=== PATIENT | male | born 1945 | race Caucasian/White ===

== ENCOUNTER → 2022-02-22 | Day surgery (SDC) | payer MEDICARE ==
[2022-02-17 13:35] LABS: BASOPHILS % 0.4 % (0.0-1.0); EOSINOPHILS # (AUTO) 0.1 (0.0-0.4); EOSINOPHILS % 1.8 % (0.0-6.0); HEMOGLOBIN 15.8 g/dL (14.0-18.0); LYMPHOCYTES # (AUTO) 1.5 (1.0-3.2); LYMPHOCYTES % 22.4 % (18.0-39.1); MEAN CORPUSCULAR HEMOGLOBIN 26.8 pg (28-32); MEAN CORPUSCULAR HGB CONC 29.8 g/dL (31-35); MONOCYTES # (AUTO) 0.8 (0.2-0.8); MONOCYTES % 11.1 % (4.4-11.3); NEUTROPHILS # (AUTO) 4.3 (2.1-6.9); NEUTROPHILS % 63.9 % (38.7-80.0); PLATELET COUNT 205 x10e3/uL (140-360); RED BLOOD COUNT 5.89 x10e6/uL (4.3-5.7); RED CELL DISTRIBUTION WIDTH 17.6 % (11.7-14.4)
[2022-02-17 13:54] LABS: ANION GAP 15.2 mmol/L (8-16); CALCIUM 9.4 mg/dL (8.4-10.2); CREATININE, SERUM 0.81 mg/dL (0.72-1.25); POTASSIUM 5.2 mmol/L (3.5-5.1)
[~2022-02-22] MED LIST: ACETAMINOPHEN-1 EAC4; ATROPINE SULFATE 1 MG/ML VIAL ONE; B&O 60MG R/S 60 MG SUPP PR ONE; BUPIVACAINE 0.25% 30ML SDV ONE; CRESTOR10 MG PO; DEXAMETHASONE SOD PHOS INJ 4 MG/ML SDV ONE; ELIQUIS5 MG PO; EPHEDRINE SULFATE INJ 50 MG/ML VIAL ONE; FENTANYL CITRATE/PF 100MCG/2 ML INJ ONE; FLUTICASONE PRO15 G1; FOLIC ACID0.4 MG PO; FUROSEMIDE40 MG PO; GENTAMICIN 80MG/NS 100 ML 200 ML IV ONE; IOPAMIDOL 610MG/1ML 300 MG/ML VIAL IV ONE; LIDOCAINE 1% W/EPINEPHRINE 20 ML VIAL ONE; LIDOCAINE HCL 2% LOCAL INJ 5 ML SDV VIAL INJ ONE; MELOXICAM7.5 MG PO; METHENAMINE HIPP1 GM; METOPROLOL SUCC50 MG PO; MULTI-VITAMIN1 EACH PO; NEOSTIGMINE 1 MG/ML 10ML VIAL ONE; NEURONTIN400 MG PO; ONDANSETRON HCL INJ 2MG/ML 2ML 2 MG/ML VIAL ONE; PHENYLEPHRINE HCL 1% 10 MG/ML VIAL ONE; PIPERACILLIN/TAZOBACTAM 3.375 GM VIAL ONE; POTASSIUM CHLO20 ME1 PO; POVIDONE IODINE 0.05% 0.05 % ML PO ONE; PROPOFOL IV EMULSION 10 MG/ML 20 ML VIAL ONE; SEVOFLURANE INHAL SOLN 250 ML PEN BTL ONE
[2022-02-22 11:05] VITALS: BP 133/88
== END | disposition home or self-care (01) ==
LOC: OR 07:57
PROVIDERS: ATTEND Urology
DX: N39.0 Urinary tract infection, site not specified (principal); N21.0 Calculus in bladder; N39.46 Mixed incontinence; N36.8 Other specified disorders of urethra; C61 Malignant neoplasm of prostate; N31.9 Neuromuscular dysfunction of bladder, unspecified; N32.3 Diverticulum of bladder; R80.9 Proteinuria, unspecified; R60.0 Localized edema; E66.9 Obesity, unspecified; I10 Essential (primary) hypertension; I25.10 Atherosclerotic heart disease of native coronary artery without angina pectoris; T14.8XXA Other injury of unspecified body region, initial encounter; J44.9 Chronic obstructive pulmonary disease, unspecified; I25.2 Old myocardial infarction; I48.91 Unspecified atrial fibrillation; X58.XXXA Exposure to other specified factors, initial encounter; Z88.1 Allergy status to other antibiotic agents; Z88.8 Allergy status to other drugs, medicaments and biological substances; Z01.812 Encounter for preprocedural laboratory examination; Z01.818 Encounter for other preprocedural examination; Z20.822 Contact with and (suspected) exposure to COVID-19; Z79.02 Long term (current) use of antithrombotics/antiplatelets; Z79.899 Other long term (current) drug therapy; Z68.37 Body mass index [BMI] 37.0-37.9, adult; Z87.891 Personal history of nicotine dependence
CPT/HCPCS: 0223U; 36415; 51040; 52005; 52317; 71046; 74420; 80048; 84152; 85025; C1758; J0461; J1100; J1580; J2001; J2370; J2405; J2543; J2704; J2710; J3010; Q9967

== ENCOUNTER 2022-05-02 19:47 | Emergency (ER) | payer MEDICARE, OTHER ==
[~2022-05-02] VITALS: Ht 180.3 cm; Wt 117.9 kg
[~2022-05-02 19:47] MED LIST changes: -ATROPINE SULFATE 1 MG/ML VIAL ONE; -B&O 60MG R/S 60 MG SUPP PR ONE; -BUPIVACAINE 0.25% 30ML SDV ONE; -DEXAMETHASONE SOD PHOS INJ 4 MG/ML SDV ONE; -EPHEDRINE SULFATE INJ 50 MG/ML VIAL ONE; -FENTANYL CITRATE/PF 100MCG/2 ML INJ ONE; -GENTAMICIN 80MG/NS 100 ML 200 ML IV ONE; -IOPAMIDOL 610MG/1ML 300 MG/ML VIAL IV ONE; -LIDOCAINE 1% W/EPINEPHRINE 20 ML VIAL ONE; -LIDOCAINE HCL 2% LOCAL INJ 5 ML SDV VIAL INJ ONE; -NEOSTIGMINE 1 MG/ML 10ML VIAL ONE; -ONDANSETRON HCL INJ 2MG/ML 2ML 2 MG/ML VIAL ONE; -PHENYLEPHRINE HCL 1% 10 MG/ML VIAL ONE; -PIPERACILLIN/TAZOBACTAM 3.375 GM VIAL ONE; -POVIDONE IODINE 0.05% 0.05 % ML PO ONE; -PROPOFOL IV EMULSION 10 MG/ML 20 ML VIAL ONE; -SEVOFLURANE INHAL SOLN 250 ML PEN BTL ONE
[2022-05-02] MEDS ORDERED: SODIUM CHLORIDE 0.9% 1000ML 1,000 ML IV STA (20:45)
[2022-05-02] MEDS ORDERED: ACETAMINOPHEN 325 MG TAB PO STA (20:45)
[2022-05-02 20:48] LABS: BASOPHILS % 0.3 % (0.0-1.0); EOSINOPHILS # (AUTO) 0.3 (0.0-0.4); EOSINOPHILS % 2.5 % (0.0-6.0); HEMATOCRIT 49.9 % (38.2-49.6); HEMOGLOBIN 15.5 g/dL (14.0-18.0); LYMPHOCYTES # (AUTO) 1.5 (1.0-3.2); LYMPHOCYTES % 14.6 % (18.0-39.1); MEAN CORPUSCULAR HEMOGLOBIN 27.7 pg (28-32); MEAN CORPUSCULAR HGB CONC 31.1 g/dL (31-35); MEAN CORPUSCULAR VOLUME 89.3 fL (81-99); MONOCYTES # (AUTO) 0.7 (0.2-0.8); MONOCYTES % 7.1 % (4.4-11.3); NEUTROPHILS # (AUTO) 7.8 (2.1-6.9); PLATELET COUNT 227 x10e3/uL (140-360); RED BLOOD COUNT 5.59 x10e6/uL (4.3-5.7); RED CELL DISTRIBUTION WIDTH 16.2 % (11.7-14.4)
[2022-05-02 20:56] LABS: AMPHETAMINES SCREEN,URINE NEGATIVE (NEGATIVE); BENZODIAZEPINES SCREEN,URINE NEGATIVE (NEGATIVE); PHENCYCLIDINE SCREEN,URINE NEGATIVE (NEGATIVE)
[2022-05-02 21:08] LABS: ALBUMIN 3.7 g/dL (3.5-5.0); ALBUMIN/GLOBULIN RATIO 0.9 (0.8-2.0); ANION GAP 16.1 mmol/L (8-16); CALCIUM 9.5 mg/dL (8.4-10.2); CREATININE, SERUM 0.83 mg/dL (0.72-1.25); POTASSIUM 4.1 mmol/L (3.5-5.1)
[2022-05-02 21:15] LABS: CREATINE KINASE MB 2.6 ng/mL (0-5.0)
[2022-05-02 21:47] LABS: CLARITY,URINE CLOUDY (CLEAR); COLOR,URINE AMBER (YELLOW); KETONES,URINE NEGATIVE (NEGATIVE); LEUKOCYTE ESTERASE ,URINE MODERATE (NEGATIVE); NITRITE,URINE POSITIVE (NEGATIVE); PROTEIN,URINE DIPSTICK 1+ (NEGATIVE); URINE UROBILINOGEN 0.2 mg/dL (0.2 - 1)
[2022-05-02 21:52] LABS: AMORPHOUS SEDIMENT,URINE MODERATE (FEW); BACTERIA,URINE MODERATE /HPF; EPITHELIAL CELLS,URINE FEW /LPF; RBC,URINE >50 /HPF (0-5)
[2022-05-02] MEDS ORDERED: IOPAMIDOL 370 MG/ML 100 ML INFUS..BTL INJ ONE (22:14)
[2022-05-02] MEDS ORDERED: CIPRO500 MG PO (23:57)
[2022-05-03 00:09] VITALS: BP 105/76
== END 2022-05-02 23:50 | disposition home or self-care (01) ==
LOC: ER 19:56
DX: R10.32 Left lower quadrant pain (principal); N39.0 Urinary tract infection, site not specified; Z88.8 Allergy status to other drugs, medicaments and biological substances; E66.01 Morbid (severe) obesity due to excess calories; Z93.6 Other artificial openings of urinary tract status; Z68.36 Body mass index [BMI] 36.0-36.9, adult; Z20.822 Contact with and (suspected) exposure to COVID-19
CPT/HCPCS: 0223U; 36415; 71045; 74177; 80053; 80307; 81001; 82550; 82553; 83605; 83690; 83880; 84484; 85025; 85379; 87040; 87086; 87186; 93005; J2543; J7030; Q9967

== ENCOUNTER 2022-05-18 16:00 | Inpatient (IN) | payer MEDICARE, OTHER ==
[~2022-05-18] VITALS: Ht 180.3 cm; Wt 113.4 kg
[~2022-05-18 16:00] MED LIST changes: +CIPRO500 MG PO
[2022-05-18] MEDS ORDERED: SODIUM CHLORIDE 0.9% 500ML 500 ML IV ONE (16:45)
[2022-05-18 16:47] LABS: BASOPHILS % 0.3 % (0.0-1.0); EOSINOPHILS # (AUTO) 0.2 (0.0-0.4); HEMATOCRIT 54.1 % (38.2-49.6); HEMOGLOBIN 16.8 g/dL (14.0-18.0); LYMPHOCYTES # (AUTO) 1.7 (1.0-3.2); LYMPHOCYTES % 22.1 % (18.0-39.1); MEAN CORPUSCULAR HEMOGLOBIN 27.5 pg (28-32); MEAN CORPUSCULAR HGB CONC 31.1 g/dL (31-35); MEAN CORPUSCULAR VOLUME 88.5 fL (81-99); MONOCYTES # (AUTO) 0.7 (0.2-0.8); MONOCYTES % 8.9 % (4.4-11.3); NEUTROPHILS # (AUTO) 5.1 (2.1-6.9); NEUTROPHILS % 66.2 % (38.7-80.0); PLATELET COUNT 257 x10e3/uL (140-360); RED BLOOD COUNT 6.11 x10e6/uL (4.3-5.7); RED CELL DISTRIBUTION WIDTH 17.4 % (11.7-14.4)
[2022-05-18 16:58] LABS: INR 1.11; PROTHROMBIN TIME 15.3 seconds (11.9-14.5)
[2022-05-18 16:59] LABS: PARTIAL THROMBOPLASTIN TIME 32.5 seconds (23.8-35.5)
[2022-05-18 17:06] LABS: ALBUMIN 3.7 g/dL (3.5-5.0); ALBUMIN/GLOBULIN RATIO 0.9 (0.8-2.0); ANION GAP 16.6 mmol/L (8-16); CALCIUM 10.2 mg/dL (8.4-10.2); CREATININE, SERUM 0.82 mg/dL (0.72-1.25); POTASSIUM 4.6 mmol/L (3.5-5.1)
[2022-05-18 18:12] LABS: CLARITY,URINE TURBID (CLEAR); COLOR,URINE YELLOW (YELLOW)
[2022-05-18 18:13] LABS: KETONES,URINE NEGATIVE (NEGATIVE); LEUKOCYTE ESTERASE ,URINE SMALL (NEGATIVE); NITRITE,URINE POSITIVE (NEGATIVE); PROTEIN,URINE DIPSTICK 2+ (NEGATIVE); URINE UROBILINOGEN 1 mg/dL (0.2 - 1)
[2022-05-18 18:19] LABS: WBC,URINE (MAN) 21-50 /HPF (0-5)
[2022-05-18 18:20] LABS: BACTERIA,URINE MODERATE /HPF; RBC,URINE 21-50 /HPF (0-5)
[2022-05-18 20:45] VITALS: BP 150/76
[2022-05-18 22:26] VITALS: BP 150/76
[2022-05-18] MEDS ORDERED: SODIUM CHLORIDE 0.9% 250ML 250 ML ONE (23:29)
[2022-05-19] VITALS (10 sets, daily range): BP systolic 141–159; BP diastolic 73–98
[2022-05-19] MEDS ORDERED: MELATONIN3 MG PO (00:15)
[2022-05-19] MEDS ORDERED: CYMBALTA30 MG (00:15)
[2022-05-19] MEDS ORDERED: OXYBUTYNIN CHLOR5 MG PO (00:15)
[2022-05-19] MEDS ORDERED: AMLODIPINE BESYL5 MG PO (00:15)
[2022-05-19] MEDS ORDERED: FLONASE ALLERG9.9 ML INH (00:15)
[2022-05-19] MEDS ORDERED: POLYETHYLENE GL17 GM PO (00:15)
[2022-05-19] MEDS ORDERED: ELIQUIS5 MG PO (09:36)
[2022-05-19] MEDS ORDERED: ACETAMINOPHEN/CODEINE 300MG - 30MG TAB PO PRN (12:30)
[2022-05-19] MEDS: GABAPENTIN 400 MG CAP PO SCH ×2 (13:48→19:55)
[2022-05-19] MEDS: APIXABAN 5 MG TABLET PO SCH (17:09)
[2022-05-19] MEDS: FUROSEMIDE 40 MG TAB PO SCH (17:09)
[2022-05-19] MEDS: AMLODIPINE BESYLATE 5 MG TAB PO SCH (17:09)
[2022-05-20 04:00] VITALS: BP 158/81
[2022-05-20 04:53] LABS: BASOPHILS % 0.3 % (0.0-1.0); EOSINOPHILS # (AUTO) 0.3 (0.0-0.4); EOSINOPHILS % 3.6 % (0.0-6.0); HEMATOCRIT 49.1 % (38.2-49.6); HEMOGLOBIN 16.2 g/dL (14.0-18.0); LYMPHOCYTES # (AUTO) 1.4 (1.0-3.2); LYMPHOCYTES % 19.7 % (18.0-39.1); MEAN CORPUSCULAR HEMOGLOBIN 27.8 pg (28-32); MEAN CORPUSCULAR VOLUME 84.4 fL (81-99); MONOCYTES # (AUTO) 0.8 (0.2-0.8); MONOCYTES % 10.7 % (4.4-11.3); NEUTROPHILS # (AUTO) 4.6 (2.1-6.9); NEUTROPHILS % 65.3 % (38.7-80.0); PLATELET COUNT 195 x10e3/uL (140-360); RED BLOOD COUNT 5.82 x10e6/uL (4.3-5.7); RED CELL DISTRIBUTION WIDTH 17.2 % (11.7-14.4)
[2022-05-20 05:25] LABS: ANION GAP 15.4 mmol/L (8-16); CALCIUM 9.7 mg/dL (8.4-10.2); CREATININE, SERUM 0.72 mg/dL (0.72-1.25); POTASSIUM 3.4 mmol/L (3.5-5.1)
[2022-05-20 07:48] VITALS: BP 128/84
[2022-05-20] MEDS: AMLODIPINE BESYLATE 5 MG TAB PO SCH (08:45)
[2022-05-20] MEDS: FUROSEMIDE 40 MG TAB PO SCH (08:45)
[2022-05-20] MEDS: GABAPENTIN 400 MG CAP PO SCH (08:46)
[2022-05-20] MEDS: APIXABAN 5 MG TABLET PO SCH (08:46)
[2022-05-20] MEDS ORDERED: SIMVASTATIN 40 MG TAB PO SCH (09:00)
[2022-05-20] MEDS ORDERED: NON-FORMULARY MEDICATION (Folic Acid* 1 MG) PO SCH (09:00)
[2022-05-20] MEDS ORDERED: FLUTICASONE PROPIONATE NASAL SPRAY NS SCH (09:00)
[2022-05-20] MEDS ORDERED: MULTIVITAMINS/MINERALS TAB PO SCH (09:00)
[2022-05-20] MEDS ORDERED: FOLIC ACID 1 MG TAB PO SCH (09:00)
[2022-05-20] MEDS ORDERED: CRESTOR 10MG PO SCH (09:00)
[2022-05-20] MEDS ORDERED: NON-FORMULARY MEDICATION (Fluticasone Propionate* (Flonase Allergy Relief*) 2 EACH) INH SCH (09:00)
[2022-05-20] MEDS ORDERED: DULOXETINE HCL 30 MG DELAYED RELEASE PO SCH (09:00)
[2022-05-20] MEDS ORDERED: METOPROLOL SUCCINATE 50 MG TAB XL PO SCH (09:00)
[2022-05-20] MEDS ORDERED: POLYETHYLENE GLYCOL 3350 17 GM PACK PO SCH (09:00)
[2022-05-20 11:18] VITALS: BP 145/79
[2022-05-20 11:42] VITALS: BP 145/79
[2022-05-20] MEDS ORDERED: Acetaminophen/Codeine 300-30MG PO (14:22)
[2022-05-20] MEDS ORDERED: ZOSYN 3.373.375 GM/1 IV (14:25)
[2022-05-20 14:55] VITALS: BP 118/76
== END 2022-05-20 15:28 | DRG 699 ==
LOC: ER 16:05 → ERHOLD 16:30 → MED/SURG2 21:03
PROVIDERS: ADMIT Internal Medicine; ATTEND Internal Medicine
DX: T83.510A Infection and inflammatory reaction due to cystostomy catheter, initial encounter (principal); D68.9 Coagulation defect, unspecified; I48.20 Chronic atrial fibrillation, unspecified; N39.0 Urinary tract infection, site not specified; Z16.12 Extended spectrum beta lactamase (ESBL) resistance; Z16.24 Resistance to multiple antibiotics; B96.20 Unspecified Escherichia coli [E. coli] as the cause of diseases classified elsewhere; I11.0 Hypertensive heart disease with heart failure; I50.9 Heart failure, unspecified; I25.2 Old myocardial infarction; E78.5 Hyperlipidemia, unspecified; Z85.46 Personal history of malignant neoplasm of prostate; Z88.8 Allergy status to other drugs, medicaments and biological substances; Z79.01 Long term (current) use of anticoagulants; G89.4 Chronic pain syndrome; E66.01 Morbid (severe) obesity due to excess calories; G62.9 Polyneuropathy, unspecified; E87.6 Hypokalemia; N28.1 Cyst of kidney, acquired; K42.9 Umbilical hernia without obstruction or gangrene; N20.0 Calculus of kidney; G47.30 Sleep apnea, unspecified; Z68.34 Body mass index [BMI] 34.0-34.9, adult; N31.9 Neuromuscular dysfunction of bladder, unspecified; N39.498 Other specified urinary incontinence; Z20.822 Contact with and (suspected) exposure to COVID-19
CPT/HCPCS: 0223U; 36415; 80048; 80053; 81001; 83735; 85025; 85610; 85730; 87040; 87086; 87186; 93005; 99284; J2543; J7040; J7050

== ENCOUNTER 2022-06-24 08:26 | Emergency (ER) | payer MEDICARE, OTHER ==
[~2022-06-24] VITALS: Ht 332.7 cm; Wt 113.4 kg
[~2022-06-24 08:26] MED LIST changes: +AMLODIPINE BESYL5 MG PO; +Acetaminophen/Codeine 300-30MG PO; +CYMBALTA30 MG; +FLONASE ALLERG9.9 ML INH; +MELATONIN3 MG PO; +OXYBUTYNIN CHLOR5 MG PO; +POLYETHYLENE GL17 GM PO; +ZOSYN 3.373.375 GM/1 IV
[2022-06-24 09:20] LABS: BASOPHILS # (AUTO) 0.1 (0.0-0.1); BASOPHILS % 0.5 % (0.0-1.0); EOSINOPHILS # (AUTO) 0.3 (0.0-0.4); EOSINOPHILS % 3.1 % (0.0-6.0); HEMATOCRIT 47.3 % (38.2-49.6); HEMOGLOBIN 15.2 g/dL (14.0-18.0); LYMPHOCYTES # (AUTO) 2.1 (1.0-3.2); LYMPHOCYTES % 19.1 % (18.0-39.1); MEAN CORPUSCULAR HEMOGLOBIN 27.7 pg (28-32); MEAN CORPUSCULAR HGB CONC 32.1 g/dL (31-35); MEAN CORPUSCULAR VOLUME 86.3 fL (81-99); MONOCYTES # (AUTO) 0.9 (0.2-0.8); MONOCYTES % 8.1 % (4.4-11.3); NEUTROPHILS # (AUTO) 7.5 (2.1-6.9); NEUTROPHILS % 68.1 % (38.7-80.0); PLATELET COUNT 285 x10e3/uL (140-360); RED BLOOD COUNT 5.48 x10e6/uL (4.3-5.7); RED CELL DISTRIBUTION WIDTH 15.8 % (11.7-14.4)
[2022-06-24 09:46] LABS: ALBUMIN 3.4 g/dL (3.5-5.0); ALBUMIN/GLOBULIN RATIO 0.9 (0.8-2.0); ANION GAP 17.9 mmol/L (8-16); CALCIUM 9.7 mg/dL (8.4-10.2); CREATININE, SERUM 0.76 mg/dL (0.72-1.25); MAGNESIUM 1.9 MG/DL (1.3-2.1); POTASSIUM 3.9 mmol/L (3.5-5.1)
[2022-06-24 09:47] LABS: INR 1.04; PROTHROMBIN TIME 14.5 seconds (11.9-14.5)
[2022-06-24 09:48] LABS: PARTIAL THROMBOPLASTIN TIME 33.2 seconds (23.8-35.5)
[2022-06-24 09:52] LABS: CREATINE KINASE MB 4.6 ng/mL (0-5.0)
[2022-06-24] MEDS ORDERED: VENTOLIN HFA18 GM INH (11:45)
== END 2022-06-24 12:40 | disposition home or self-care (01) ==
LOC: ER 08:31
DX: R05.9 Cough, unspecified (principal); J40 Bronchitis, not specified as acute or chronic; N39.0 Urinary tract infection, site not specified; I10 Essential (primary) hypertension; I50.9 Heart failure, unspecified; I48.91 Unspecified atrial fibrillation; E78.5 Hyperlipidemia, unspecified; M54.9 Dorsalgia, unspecified; G89.29 Other chronic pain; R94.31 Abnormal electrocardiogram [ECG] [EKG]; Z20.822 Contact with and (suspected) exposure to COVID-19; Z85.46 Personal history of malignant neoplasm of prostate
CPT/HCPCS: 36415; 71045; 80053; 82550; 82553; 83735; 83880; 84484; 85025; 85610; 85730; 87400; 93005; 99284; U0002

== ENCOUNTER 2022-10-04 10:48 | Emergency (ER) | payer MEDICARE, OTHER ==
[~2022-10-04] VITALS: Ht 332.7 cm; Wt 113.4 kg
[~2022-10-04 10:48] MED LIST changes: +ACETAMIN-CODE12.5 ML PO; +ACETAMINOPHEN325 M1 PO; +ARTIFICIAL TEAR15 ML OD; +ARTIFICIAL TEAR15 ML OU; +BENZONATATE100 MG PO; +METHENAMINE HIPP1 GM PO; +SPIRONOLACTONE25 MG PO; +TEMAZEPAM15 MG PO; +TRIPLE ANTIBIOT28 GM TP; +VENTOLIN HFA18 GM INH; +VITAMIN B1 PO; +VITAMIN D250 MCG PO
[2022-10-04 14:31] LABS: CLARITY,URINE SL CLOUDY (CLEAR); COLOR,URINE YELLOW (YELLOW); LEUKOCYTE ESTERASE ,URINE SMALL (NEGATIVE)
[2022-10-04 14:32] LABS: KETONES,URINE NEGATIVE (NEGATIVE); NITRITE,URINE POSITIVE (NEGATIVE); PROTEIN,URINE DIPSTICK NEGATIVE (NEGATIVE); URINE UROBILINOGEN 0.2 mg/dL (0.2 - 1)
[2022-10-04 14:38] LABS: BACTERIA,URINE MODERATE /HPF; RBC,URINE 21-50 /HPF (0-5)
[2022-10-04] MEDS ORDERED: CEFDINIR300 MG PO (15:27)
[2022-10-04 16:24] VITALS: BP 126/89
== END 2022-10-04 16:35 | disposition home or self-care (01) ==
LOC: ER 11:05
DX: Z46.6 Encounter for fitting and adjustment of urinary device (principal); N39.0 Urinary tract infection, site not specified; R50.9 Fever, unspecified; I10 Essential (primary) hypertension; I50.9 Heart failure, unspecified; I48.91 Unspecified atrial fibrillation; E78.5 Hyperlipidemia, unspecified; F32.A Depression, unspecified; I25.2 Old myocardial infarction; Z85.46 Personal history of malignant neoplasm of prostate
CPT/HCPCS: 81001; 87086; 87186; 99283

== ENCOUNTER → 2022-10-25 | Day surgery (SDC) | payer MEDICARE, OTHER ==
[~2022-10-25] MED LIST changes: +ARTIFICIAL TEAR15 M3 OU; +Ampicillin INJ 1 GM Vial ONE; +BOTULINUM TOXIN TYPE A 100 UNIT VIAL IM ONE; +CEFDINIR300 MG PO; +CERTAVITE SR W1 EACH PO; +CYMBALTA20 MG PO; +DEXAMETHASONE SOD PHOS INJ 4 MG/ML SDV ONE; +EPHEDRINE SULFATE INJ 50 MG/ML VIAL ONE; +FENTANYL CITRATE/PF 100MCG/2 ML INJ ONE; +FLUCONAZOLE 200 MG/100 ML 100 ML IV ONE; +GENTAMICIN 80MG/NS 100 ML 200 ML IV ONE; +IOPAMIDOL 610MG/1ML 300 MG/ML VIAL IV ONE; +KRILL OIL 1,001 EACH PO; +LIDOCAINE HCL 2% LOCAL INJ 5 ML SDV VIAL INJ ONE; +ONDANSETRON HCL INJ 2MG/ML 2ML 2 MG/ML VIAL ONE; +POVIDONE IODINE 0.05% 0.05 % ML PO ONE; +PROPOFOL IV EMULSION 10 MG/ML 20 ML VIAL ONE; +SERTRALINE HCL50 MG PO; +SEVOFLURANE INHAL SOLN 250 ML PEN BTL ONE
[2022-10-25 06:56] LABS: BASOPHILS % 0.4 % (0.0-1.0); EOSINOPHILS # (AUTO) 0.3 (0.0-0.4); EOSINOPHILS % 2.8 % (0.0-6.0); HEMATOCRIT 54.2 % (38.2-49.6); HEMOGLOBIN 17.3 g/dL (14.0-18.0); LYMPHOCYTES # (AUTO) 2.2 (1.0-3.2); LYMPHOCYTES % 19.4 % (18.0-39.1); MEAN CORPUSCULAR HEMOGLOBIN 28.8 pg (28-32); MEAN CORPUSCULAR HGB CONC 31.9 g/dL (31-35); MEAN CORPUSCULAR VOLUME 90.2 fL (81-99); MONOCYTES # (AUTO) 0.8 (0.2-0.8); MONOCYTES % 6.9 % (4.4-11.3); NEUTROPHILS # (AUTO) 7.9 (2.1-6.9); NEUTROPHILS % 69.9 % (38.7-80.0); PLATELET COUNT 183 x10e3/uL (140-360); RED BLOOD COUNT 6.01 x10e6/uL (4.3-5.7); RED CELL DISTRIBUTION WIDTH 15.3 % (11.7-14.4)
[2022-10-25 07:25] LABS: ANION GAP 13.7 mmol/L (8-16); CALCIUM 9.7 mg/dL (8.4-10.2); CREATININE, SERUM 0.84 mg/dL (0.72-1.25); POTASSIUM 4.7 mmol/L (3.5-5.1)
[2022-10-25 10:35] VITALS: BP 134/82
== END | disposition home or self-care (01) ==
LOC: OR 06:08
PROVIDERS: ATTEND Urology
DX: Z43.5 Encounter for attention to cystostomy (principal); C61 Malignant neoplasm of prostate; N39.41 Urge incontinence; N39.45 Continuous leakage; N31.9 Neuromuscular dysfunction of bladder, unspecified; N32.3 Diverticulum of bladder; N39.0 Urinary tract infection, site not specified; N21.0 Calculus in bladder; R80.9 Proteinuria, unspecified; N20.0 Calculus of kidney; I10 Essential (primary) hypertension; E78.00 Pure hypercholesterolemia, unspecified; I25.10 Atherosclerotic heart disease of native coronary artery without angina pectoris; J44.9 Chronic obstructive pulmonary disease, unspecified; I25.2 Old myocardial infarction; I48.91 Unspecified atrial fibrillation; R60.0 Localized edema; E66.9 Obesity, unspecified; Z88.8 Allergy status to other drugs, medicaments and biological substances; Z79.02 Long term (current) use of antithrombotics/antiplatelets; Z79.1 Long term (current) use of non-steroidal anti-inflammatories (NSAID); Z79.899 Other long term (current) drug therapy; Z68.41 Body mass index [BMI] 40.0-44.9, adult; Z95.5 Presence of coronary angioplasty implant and graft
CPT/HCPCS: 36415; 51705; 52005; 52287; 74018; 74420; 80048; 84550; 85025; 87086; 87186; 93005; C1758; J0587; J1100; J1450; J1580; J2001; J2405; J2704; J3010; Q9967

== ENCOUNTER 2022-11-16 12:37 | Inpatient (IN) | payer MEDICARE, OTHER ==
[~2022-11-16] VITALS: Ht 170.2 cm; Wt 113.4 kg
[~2022-11-16 12:37] MED LIST changes: -Ampicillin INJ 1 GM Vial ONE; -BOTULINUM TOXIN TYPE A 100 UNIT VIAL IM ONE; -DEXAMETHASONE SOD PHOS INJ 4 MG/ML SDV ONE; -EPHEDRINE SULFATE INJ 50 MG/ML VIAL ONE; -FENTANYL CITRATE/PF 100MCG/2 ML INJ ONE; -FLUCONAZOLE 200 MG/100 ML 100 ML IV ONE; -GENTAMICIN 80MG/NS 100 ML 200 ML IV ONE; -IOPAMIDOL 610MG/1ML 300 MG/ML VIAL IV ONE; -LIDOCAINE HCL 2% LOCAL INJ 5 ML SDV VIAL INJ ONE; -ONDANSETRON HCL INJ 2MG/ML 2ML 2 MG/ML VIAL ONE; -POVIDONE IODINE 0.05% 0.05 % ML PO ONE; -PROPOFOL IV EMULSION 10 MG/ML 20 ML VIAL ONE; -SEVOFLURANE INHAL SOLN 250 ML PEN BTL ONE
[2022-11-16 13:58] LABS: BASOPHILS % 0.4 % (0.0-1.0); EOSINOPHILS # (AUTO) 0.1 (0.0-0.4); EOSINOPHILS % 1.4 % (0.0-6.0); HEMATOCRIT 54.2 % (38.2-49.6); HEMOGLOBIN 17.3 g/dL (14.0-18.0); LYMPHOCYTES # (AUTO) 1.9 (1.0-3.2); MEAN CORPUSCULAR HEMOGLOBIN 29.2 pg (28-32); MEAN CORPUSCULAR HGB CONC 31.9 g/dL (31-35); MEAN CORPUSCULAR VOLUME 91.4 fL (81-99); MONOCYTES # (AUTO) 0.7 (0.2-0.8); MONOCYTES % 6.5 % (4.4-11.3); NEUTROPHILS # (AUTO) 7.5 (2.1-6.9); NEUTROPHILS % 73.1 % (38.7-80.0); PLATELET COUNT 188 x10e3/uL (140-360); RED BLOOD COUNT 5.93 x10e6/uL (4.3-5.7); RED CELL DISTRIBUTION WIDTH 16.1 % (11.7-14.4)
[2022-11-16 14:11] LABS: INR 1.02; PARTIAL THROMBOPLASTIN TIME 31.5 seconds (23.8-35.5); PROTHROMBIN TIME 13.9 seconds (11.9-14.5)
[2022-11-16 14:18] LABS: ALBUMIN 3.6 g/dL (3.5-5.0); ALBUMIN/GLOBULIN RATIO 1.1 (0.8-2.0); ANION GAP 15.5 mmol/L (8-16); CALCIUM 9.9 mg/dL (8.4-10.2); CREATININE, SERUM 0.82 mg/dL (0.72-1.25); POTASSIUM 4.5 mmol/L (3.5-5.1)
[2022-11-16 14:24] LABS: CREATINE KINASE MB 3.3 ng/mL (0-5.0)
[2022-11-16] MEDS ORDERED: SODIUM CHLORIDE 0.9% 1000ML 1,000 ML IV SCH (14:30)
[2022-11-16] MEDS: SODIUM CHLORIDE 0.9% 1000ML 1,000 ML IV SCH (18:00)
[2022-11-16 21:17] LABS: CREATINE KINASE MB 2.6 ng/mL (0-5.0)
[2022-11-16 21:21] VITALS: BP 139/61
[2022-11-16 22:07] VITALS: BP 139/61
[2022-11-17] VITALS (7 sets, daily range): BP systolic 119–133; BP diastolic 64–85
[2022-11-17] MEDS: Morphine 4mg INJECTION 4 MG/ML INJ IV PRN
[2022-11-17 05:25] LABS: BASOPHILS # (AUTO) 0.1 (0.0-0.1); BASOPHILS % 0.6 % (0.0-1.0); EOSINOPHILS # (AUTO) 0.1 (0.0-0.4); EOSINOPHILS % 1.5 % (0.0-6.0); HEMATOCRIT 48.3 % (38.2-49.6); HEMOGLOBIN 15.2 g/dL (14.0-18.0); LYMPHOCYTES # (AUTO) 2.1 (1.0-3.2); LYMPHOCYTES % 23.8 % (18.0-39.1); MEAN CORPUSCULAR HEMOGLOBIN 28.8 pg (28-32); MEAN CORPUSCULAR HGB CONC 31.5 g/dL (31-35); MEAN CORPUSCULAR VOLUME 91.7 fL (81-99); MONOCYTES # (AUTO) 0.6 (0.2-0.8); MONOCYTES % 7.4 % (4.4-11.3); NEUTROPHILS # (AUTO) 5.7 (2.1-6.9); NEUTROPHILS % 66.1 % (38.7-80.0); PLATELET COUNT 166 x10e3/uL (140-360); RED BLOOD COUNT 5.27 x10e6/uL (4.3-5.7); RED CELL DISTRIBUTION WIDTH 15.2 % (11.7-14.4)
[2022-11-17 06:03] LABS: ALBUMIN 3.1 g/dL (3.5-5.0); ALBUMIN/GLOBULIN RATIO 1.2 (0.8-2.0); CALCIUM 9.6 mg/dL (8.4-10.2); CREATININE, SERUM 0.77 mg/dL (0.72-1.25)
[2022-11-17 06:28] LABS: CREATINE KINASE MB 2.3 ng/mL (0-5.0)
[2022-11-17] MEDS: SODIUM CHLORIDE 0.9% 1000ML 1,000 ML IV SCH ×3 (07:57→17:40)
[2022-11-17] MEDS ORDERED: CODEINE PO PRN (12:30)
[2022-11-17] MEDS ORDERED: BENZONATATE 100 MG CAP PO PRN (12:30)
[2022-11-17] MEDS ORDERED: POLYETHYLENE GLYCOL 3350 17 GM PACK PO PRN (12:30)
[2022-11-17] MEDS ORDERED: ACETAMINOPHEN 325 MG TAB PO PRN (12:30)
[2022-11-17] MEDS ORDERED: ACETAMINOPHEN PO PRN (12:30)
[2022-11-17] MEDS: ACETAMINOPHEN/CODEINE 300MG - 30MG TAB PO PRN (13:00)
[2022-11-17] MEDS: GABAPENTIN 400 MG CAP PO SCH ×3 (13:00→21:01)
[2022-11-17] MEDS: OXYBUTYNIN CHLORIDE 5 MG TAB PO SCH ×2 (13:00→21:01)
[2022-11-17 16:20] LABS: CREATINE KINASE MB 2.7 ng/mL (0-5.0)
[2022-11-17] MEDS: (Methenamine Hippurate 1 GM) PO SCH (17:00)
[2022-11-17] MEDS: FUROSEMIDE 20 MG TAB PO SCH (17:36)
[2022-11-17] MEDS: APIXABAN 5 MG TABLET PO SCH (17:36)
[2022-11-17] MEDS: METOPROLOL SUCCINATE 50 MG TAB XL PO SCH (20:04)
[2022-11-17] MEDS: CRESTOR 10MG PO SCH (21:01)
[2022-11-18] VITALS (7 sets, daily range): BP systolic 121–159; BP diastolic 74–91
[2022-11-18] MEDS: SODIUM CHLORIDE 0.9% 1000ML 1,000 ML IV SCH ×4 (00:18→23:49)
[2022-11-18 06:51] LABS: BASOPHILS % 0.4 % (0.0-1.0); EOSINOPHILS # (AUTO) 0.2 (0.0-0.4); EOSINOPHILS % 1.7 % (0.0-6.0); HEMATOCRIT 49.3 % (38.2-49.6); HEMOGLOBIN 15.6 g/dL (14.0-18.0); LYMPHOCYTES # (AUTO) 1.6 (1.0-3.2); LYMPHOCYTES % 15.5 % (18.0-39.1); MEAN CORPUSCULAR HGB CONC 31.6 g/dL (31-35); MEAN CORPUSCULAR VOLUME 91.6 fL (81-99); MONOCYTES # (AUTO) 0.6 (0.2-0.8); MONOCYTES % 5.9 % (4.4-11.3); NEUTROPHILS # (AUTO) 7.8 (2.1-6.9); NEUTROPHILS % 76.1 % (38.7-80.0); PLATELET COUNT 161 x10e3/uL (140-360); RED BLOOD COUNT 5.38 x10e6/uL (4.3-5.7); RED CELL DISTRIBUTION WIDTH 15.1 % (11.7-14.4)
[2022-11-18 06:56] LABS: ANION GAP 12.9 mmol/L (8-16); CALCIUM 9.2 mg/dL (8.4-10.2); CREATININE, SERUM 0.74 mg/dL (0.72-1.25); POTASSIUM 3.9 mmol/L (3.5-5.1)
[2022-11-18] MEDS: Morphine 4mg INJECTION 4 MG/ML INJ IV PRN ×2 (08:07→20:24)
[2022-11-18] MEDS: SPIRONOLACTONE 25 MG TAB PO SCH (08:16)
[2022-11-18] MEDS: APIXABAN 5 MG TABLET PO SCH ×2 (08:16→16:17)
[2022-11-18] MEDS: (Methenamine Hippurate 1 GM) PO SCH ×2 (08:16→16:19)
[2022-11-18] MEDS: OXYBUTYNIN CHLORIDE 5 MG TAB PO SCH ×3 (08:16→20:26)
[2022-11-18] MEDS: DULOXETINE HCL 30 MG DELAYED RELEASE PO SCH (08:16)
[2022-11-18] MEDS: FOLIC ACID 1 MG TAB PO SCH (08:16)
[2022-11-18] MEDS: SERTRALINE HCL 50 MG TAB PO SCH (08:17)
[2022-11-18] MEDS: GABAPENTIN 400 MG CAP PO SCH ×4 (08:17→20:25)
[2022-11-18] MEDS: FUROSEMIDE 20 MG TAB PO SCH ×2 (08:17→16:17)
[2022-11-18] MEDS ORDERED: NON-FORMULARY MEDICATION (Folic Acid* 1 MG) PO SCH (09:00)
[2022-11-18] MEDS ORDERED: POTASSIUM CHLORIDE 20 MEQ TAB CR PO SCH (09:00)
[2022-11-18] MEDS ORDERED: REGADENOSON 0.4 MG/5 ML SYR IV ONE (10:37)
[2022-11-18] MEDS: ONDANSETRON HCL INJ 2MG/ML 2ML 2 MG/ML VIAL IV PRN (20:24)
[2022-11-18] MEDS: TEMAZEPAM 15 MG CAP PO SCH (20:25)
[2022-11-18] MEDS: CRESTOR 10MG PO SCH (20:25)
[2022-11-18] MEDS: METOPROLOL SUCCINATE 50 MG TAB XL PO SCH (20:26)
[2022-11-18] MEDS: ACETAMINOPHEN/CODEINE 300MG - 30MG TAB PO PRN (22:32)
[2022-11-19] VITALS (8 sets, daily range): BP systolic 117–146; BP diastolic 61–89
[2022-11-19 07:41] LABS: BASOPHILS % 0.3 % (0.0-1.0); EOSINOPHILS # (AUTO) 0.1 (0.0-0.4); EOSINOPHILS % 1.1 % (0.0-6.0); HEMATOCRIT 48.1 % (38.2-49.6); HEMOGLOBIN 16.4 g/dL (14.0-18.0); LYMPHOCYTES # (AUTO) 1.5 (1.0-3.2); LYMPHOCYTES % 15.4 % (18.0-39.1); MEAN CORPUSCULAR HEMOGLOBIN 33.1 pg (28-32); MEAN CORPUSCULAR HGB CONC 34.1 g/dL (31-35); MEAN CORPUSCULAR VOLUME 97.2 fL (81-99); MONOCYTES # (AUTO) 0.7 (0.2-0.8); MONOCYTES % 7.5 % (4.4-11.3); NEUTROPHILS # (AUTO) 7.1 (2.1-6.9); NEUTROPHILS % 75.3 % (38.7-80.0); PLATELET COUNT 182 x10e3/uL (140-360); RED BLOOD COUNT 4.95 x10e6/uL (4.3-5.7); RED CELL DISTRIBUTION WIDTH 19.9 % (11.7-14.4)
[2022-11-19 07:44] LABS: ANION GAP 13.9 mmol/L (8-16); CALCIUM 9.1 mg/dL (8.4-10.2); CREATININE, SERUM 0.8 mg/dL (0.72-1.25); POTASSIUM 3.9 mmol/L (3.5-5.1)
[2022-11-19] MEDS: Morphine 4mg INJECTION 4 MG/ML INJ IV PRN ×2 (08:01→14:45)
[2022-11-19] MEDS: SODIUM CHLORIDE 0.9% 1000ML 1,000 ML IV SCH (08:01)
[2022-11-19] MEDS: DULOXETINE HCL 30 MG DELAYED RELEASE PO SCH (08:02)
[2022-11-19] MEDS: OXYBUTYNIN CHLORIDE 5 MG TAB PO SCH ×3 (08:02→20:14)
[2022-11-19] MEDS: SPIRONOLACTONE 25 MG TAB PO SCH (08:02)
[2022-11-19] MEDS: GABAPENTIN 400 MG CAP PO SCH ×4 (08:03→20:14)
[2022-11-19] MEDS: FUROSEMIDE 20 MG TAB PO SCH ×2 (08:03→17:00)
[2022-11-19] MEDS: APIXABAN 5 MG TABLET PO SCH (08:03)
[2022-11-19] MEDS: FOLIC ACID 1 MG TAB PO SCH (08:03)
[2022-11-19] MEDS: (Methenamine Hippurate 1 GM) PO SCH ×2 (08:03→17:01)
[2022-11-19] MEDS: SERTRALINE HCL 50 MG TAB PO SCH (08:03)
[2022-11-19] MEDS: ACETAMINOPHEN/CODEINE 300MG - 30MG TAB PO PRN ×2 (10:52→18:40)
[2022-11-19] MEDS: MELOXICAM 7.5 MG TAB PO SCH (17:00)
[2022-11-19] MEDS: CRESTOR 10MG PO SCH (20:14)
[2022-11-19] MEDS: TEMAZEPAM 15 MG CAP PO SCH (20:15)
[2022-11-19] MEDS: METOPROLOL SUCCINATE 50 MG TAB XL PO SCH (20:15)
[2022-11-20] VITALS (17 sets, daily range): BP systolic 108–139; BP diastolic 56–86
[2022-11-20] MEDS: Morphine 2mg Syringe 2 MG/ML SYR IV PRN (07:34)
[2022-11-20] MEDS ORDERED: LIDOCAINE HCL 2% LOCAL 20 ML VIAL ONE (07:54)
[2022-11-20] MEDS ORDERED: HEPARIN SOD (PORCINE) 1000 UNIT/ML 30ML ONE (07:54)
[2022-11-20] MEDS ORDERED: HEPARIN SOD/SOD CHLORIDE 2,000 ML ONE (07:54)
[2022-11-20] MEDS ORDERED: IOPAMIDOL 370 MG/ML 100 ML INFUS..BTL INJ ONE ×2 (07:55→09:03)
[2022-11-20] MEDS ORDERED: SODIUM CHLORIDE 0.9% 1000ML 1,000 ML ONE (07:55)
[2022-11-20] MEDS ORDERED: VERAPAMIL HCL 2.5 MG/ML 2 ML VIAL ONE (07:55)
[2022-11-20] MEDS ORDERED: NITROGLYCERIN/D5W 200 MCG/ML 250 ML ONE (07:55)
[2022-11-20] MEDS ORDERED: MIDAZOLAM HCL 2 MG/2 ML VIAL ONE (07:56)
[2022-11-20] MEDS ORDERED: FENTANYL CITRATE/PF 100MCG/2 ML INJ ONE (07:56)
[2022-11-20] MEDS: FOLIC ACID 1 MG TAB PO SCH (09:00)
[2022-11-20] MEDS: ASPIRIN 81 MG ENTERIC COATED PO SCH (09:00)
[2022-11-20] MEDS: FUROSEMIDE 20 MG TAB PO SCH ×2 (09:00→16:08)
[2022-11-20] MEDS: SPIRONOLACTONE 25 MG TAB PO SCH (09:00)
[2022-11-20] MEDS: MELOXICAM 7.5 MG TAB PO SCH (09:00)
[2022-11-20] MEDS: SERTRALINE HCL 50 MG TAB PO SCH (09:00)
[2022-11-20] MEDS: (Methenamine Hippurate 1 GM) PO SCH ×2 (09:00→16:08)
[2022-11-20] MEDS: OXYBUTYNIN CHLORIDE 5 MG TAB PO SCH ×3 (09:00→21:17)
[2022-11-20] MEDS: DULOXETINE HCL 30 MG DELAYED RELEASE PO SCH (09:00)
[2022-11-20] MEDS: GABAPENTIN 400 MG CAP PO SCH ×4 (09:00→21:18)
[2022-11-20] MEDS: ACETAMINOPHEN/CODEINE 300MG - 30MG TAB PO PRN (12:16)
[2022-11-20] MEDS: METOPROLOL SUCCINATE 50 MG TAB XL PO SCH (21:17)
[2022-11-20] MEDS: TEMAZEPAM 15 MG CAP PO SCH (21:18)
[2022-11-20] MEDS: CRESTOR 10MG PO SCH (21:18)
[2022-11-21] MEDS: ONDANSETRON HCL INJ 2MG/ML 2ML 2 MG/ML VIAL IV PRN (02:23)
[2022-11-21] MEDS: Morphine 2mg Syringe 2 MG/ML SYR IV PRN (02:24)
[2022-11-21 07:44] VITALS: BP 114/62
[2022-11-21] MEDS: ASPIRIN 81 MG ENTERIC COATED PO SCH (09:00)
[2022-11-21] MEDS: SPIRONOLACTONE 25 MG TAB PO SCH (09:37)
[2022-11-21] MEDS: OXYBUTYNIN CHLORIDE 5 MG TAB PO SCH ×3 (09:37→21:35)
[2022-11-21] MEDS: FUROSEMIDE 20 MG TAB PO SCH ×2 (09:37→16:30)
[2022-11-21] MEDS: DULOXETINE HCL 30 MG DELAYED RELEASE PO SCH (09:38)
[2022-11-21] MEDS: FOLIC ACID 1 MG TAB PO SCH (09:38)
[2022-11-21] MEDS: SERTRALINE HCL 50 MG TAB PO SCH (09:39)
[2022-11-21] MEDS: MELOXICAM 7.5 MG TAB PO SCH (09:39)
[2022-11-21] MEDS: GABAPENTIN 400 MG CAP PO SCH ×4 (09:39→21:36)
[2022-11-21] MEDS: (Methenamine Hippurate 1 GM) PO SCH ×2 (09:44→16:29)
[2022-11-21 09:48] VITALS: BP 114/62
[2022-11-21 11:34] VITALS: BP 141/82
[2022-11-21 12:55] LABS: BODY FLUID APPEARANCE CLOUDY; BODY FLUID COLOR YELLOW; BODY FLUID TYPE SYNOVIAL; RBC,BODY FLUID 13000 cells/uL; WBC,BODY FLUID 48361 cells/uL
[2022-11-21] MEDS: ACETAMINOPHEN/CODEINE 300MG - 30MG TAB PO PRN (13:45)
[2022-11-21 15:52] LABS: LYMPHOCYTES,BODY FLUID 19 %; MONO/MACROPHG,BODY FLUID 6 %; NEUTROPHILS,BODY FLUID 75 %
[2022-11-21 16:46] VITALS: BP 109/67
[2022-11-21 20:00] VITALS: BP 134/69
[2022-11-21] MEDS: CRESTOR 10MG PO SCH (21:35)
[2022-11-21] MEDS: TEMAZEPAM 15 MG CAP PO SCH (21:36)
[2022-11-21] MEDS: METOPROLOL SUCCINATE 50 MG TAB XL PO SCH (21:36)
[2022-11-22] VITALS (8 sets, daily range): BP systolic 10–137; BP diastolic 59–75
[2022-11-22 05:10] LABS: BASOPHILS % 0.1 % (0.0-1.0); EOSINOPHILS # (AUTO) 0.1 (0.0-0.4); EOSINOPHILS % 0.8 % (0.0-6.0); HEMATOCRIT 45.5 % (38.2-49.6); HEMOGLOBIN 14.7 g/dL (14.0-18.0); LYMPHOCYTES # (AUTO) 0.9 (1.0-3.2); LYMPHOCYTES % 11.9 % (18.0-39.1); MEAN CORPUSCULAR HEMOGLOBIN 29.4 pg (28-32); MEAN CORPUSCULAR HGB CONC 32.3 g/dL (31-35); MONOCYTES # (AUTO) 0.9 (0.2-0.8); MONOCYTES % 11.7 % (4.4-11.3); NEUTROPHILS # (AUTO) 5.8 (2.1-6.9); PLATELET COUNT 141 x10e3/uL (140-360); RED CELL DISTRIBUTION WIDTH 15.2 % (11.7-14.4)
[2022-11-22 05:33] LABS: ALBUMIN 2.5 g/dL (3.5-5.0); ALBUMIN/GLOBULIN RATIO 0.7 (0.8-2.0); ANION GAP 15.7 mmol/L (8-16); CREATININE, SERUM 0.62 mg/dL (0.72-1.25); MAGNESIUM 1.7 MG/DL (1.3-2.1); PHOSPHORUS 2.5 MG/DL (2.3-4.7); POTASSIUM 3.7 mmol/L (3.5-5.1)
[2022-11-22] MEDS: (Methenamine Hippurate 1 GM) PO SCH ×2 (09:00→16:29)
[2022-11-22] MEDS: ASPIRIN 81 MG ENTERIC COATED PO SCH (09:04)
[2022-11-22] MEDS: SPIRONOLACTONE 25 MG TAB PO SCH (09:04)
[2022-11-22] MEDS: MELOXICAM 7.5 MG TAB PO SCH (09:05)
[2022-11-22] MEDS: FOLIC ACID 1 MG TAB PO SCH (09:05)
[2022-11-22] MEDS: DULOXETINE HCL 30 MG DELAYED RELEASE PO SCH (09:05)
[2022-11-22] MEDS: FUROSEMIDE 20 MG TAB PO SCH ×2 (09:05→16:29)
[2022-11-22] MEDS: OXYBUTYNIN CHLORIDE 5 MG TAB PO SCH ×3 (09:05→22:48)
[2022-11-22] MEDS: GABAPENTIN 400 MG CAP PO SCH ×4 (09:05→22:48)
[2022-11-22] MEDS: SERTRALINE HCL 50 MG TAB PO SCH (09:05)
[2022-11-22] MEDS: ACETAMINOPHEN/CODEINE 300MG - 30MG TAB PO PRN ×3 (09:06→22:21)
[2022-11-22] MEDS: MEROPENEM 1 GM in SODIUM CHLORIDE 0.9% 100 ML IV SCH ×2 (10:43→22:49)
[2022-11-22] MEDS ORDERED: BISACODYL 5 MG TAB EC PO PRN (18:45)
[2022-11-22] MEDS: POLYETHYLENE GLYCOL 3350 17 GM PACK PO SCH (19:30)
[2022-11-22] MEDS: CRESTOR 10MG PO SCH (22:48)
[2022-11-22] MEDS: TEMAZEPAM 15 MG CAP PO SCH (22:48)
[2022-11-22] MEDS: DOCUSATE SODIUM 100 MG CAP PO SCH (22:48)
[2022-11-22] MEDS: METOPROLOL SUCCINATE 50 MG TAB XL PO SCH (22:56)
[2022-11-23] MEDS: ACETAMINOPHEN/CODEINE 300MG - 30MG TAB PO PRN ×2 (06:31→16:11)
[2022-11-23 08:00] VITALS: BP 122/80
[2022-11-23 08:24] VITALS: BP 100/66
[2022-11-23 10:00] VITALS: BP 116/62
[2022-11-23] MEDS: POLYETHYLENE GLYCOL 3350 17 GM PACK PO SCH ×2 (10:09→16:04)
[2022-11-23] MEDS: MEROPENEM 1 GM in SODIUM CHLORIDE 0.9% 100 ML IV SCH ×2 (10:09→21:37)
[2022-11-23] MEDS: DOCUSATE SODIUM 100 MG CAP PO SCH ×3 (10:10→21:37)
[2022-11-23] MEDS: GABAPENTIN 400 MG CAP PO SCH ×4 (10:10→21:37)
[2022-11-23] MEDS: DULOXETINE HCL 30 MG DELAYED RELEASE PO SCH (10:10)
[2022-11-23] MEDS: FOLIC ACID 1 MG TAB PO SCH (10:11)
[2022-11-23] MEDS: ASPIRIN 81 MG ENTERIC COATED PO SCH (10:11)
[2022-11-23] MEDS: SPIRONOLACTONE 25 MG TAB PO SCH (10:11)
[2022-11-23] MEDS: FUROSEMIDE 20 MG TAB PO SCH ×2 (10:11→16:04)
[2022-11-23] MEDS: MELOXICAM 7.5 MG TAB PO SCH (10:12)
[2022-11-23] MEDS: SERTRALINE HCL 50 MG TAB PO SCH (10:12)
[2022-11-23] MEDS: OXYBUTYNIN CHLORIDE 5 MG TAB PO SCH ×3 (10:12→21:37)
[2022-11-23] MEDS: (Methenamine Hippurate 1 GM) PO SCH ×2 (13:00→17:00)
[2022-11-23 16:00] VITALS: BP 115/81
[2022-11-23 20:00] VITALS: BP 111/65
[2022-11-23 20:10] VITALS: BP 111/65
[2022-11-23] MEDS: METOPROLOL SUCCINATE 50 MG TAB XL PO SCH (21:00)
[2022-11-23] MEDS: CRESTOR 10MG PO SCH (21:36)
[2022-11-23] MEDS: TEMAZEPAM 15 MG CAP PO SCH (22:19)
[2022-11-24] VITALS: BP 115/67
[2022-11-24] MEDS: ACETAMINOPHEN/CODEINE 300MG - 30MG TAB PO PRN (01:20)
[2022-11-24 04:45] VITALS: BP 135/82
[2022-11-24 07:35] VITALS: BP 125/69
[2022-11-24 08:06] VITALS: BP 125/69
[2022-11-24] MEDS: SERTRALINE HCL 50 MG TAB PO SCH (08:53)
[2022-11-24] MEDS: MELOXICAM 7.5 MG TAB PO SCH (08:53)
[2022-11-24] MEDS: DULOXETINE HCL 30 MG DELAYED RELEASE PO SCH (08:54)
[2022-11-24] MEDS: SPIRONOLACTONE 25 MG TAB PO SCH (08:54)
[2022-11-24] MEDS: FOLIC ACID 1 MG TAB PO SCH (08:55)
[2022-11-24] MEDS: DOCUSATE SODIUM 100 MG CAP PO SCH ×2 (08:55→15:11)
[2022-11-24] MEDS: GABAPENTIN 400 MG CAP PO SCH ×3 (08:55→18:00)
[2022-11-24] MEDS: FUROSEMIDE 20 MG TAB PO SCH ×2 (08:55→17:00)
[2022-11-24] MEDS: OXYBUTYNIN CHLORIDE 5 MG TAB PO SCH ×2 (08:55→15:11)
[2022-11-24] MEDS: ASPIRIN 81 MG ENTERIC COATED PO SCH (08:56)
[2022-11-24] MEDS: POLYETHYLENE GLYCOL 3350 17 GM PACK PO SCH ×2 (08:57→17:00)
[2022-11-24] MEDS: (Methenamine Hippurate 1 GM) PO SCH ×2 (09:00→17:00)
[2022-11-24] MEDS: MEROPENEM 1 GM in SODIUM CHLORIDE 0.9% 100 ML IV SCH (09:11)
[2022-11-24 11:36] VITALS: BP 133/86
[2022-11-24] MEDS ORDERED: ONDANSETRON HCL 4 MG ORAL DISINTEGRATING TAB PO PRN (16:30)
[2022-11-24] MEDS ORDERED: APIXABAN 5 MG TABLET PO SCH (17:00)
== END 2022-11-24 20:00 | DRG 286 ==
LOC: ER 12:43 → ERHOLD 14:33 → MED/SURG 20:59 → OBSVTOIN 11-18 11:29
PROVIDERS: ADMIT Internal Medicine; ATTEND Internal Medicine
PROC: 4A023N7 Measurement of Cardiac Sampling and Pressure, Left Heart, Percutaneous Approach (ICD-10-PCS; 2022-11-19)
PROC: B2111ZZ Fluoroscopy of Multiple Coronary Arteries using Low Osmolar Contrast (ICD-10-PCS; 2022-11-19)
PROC: 02HV33Z Insertion of Infusion Device into Superior Vena Cava, Percutaneous Approach (ICD-10-PCS; 2022-11-19)
PROC: 05HY33Z Insertion of Infusion Device into Upper Vein, Percutaneous Approach (ICD-10-PCS; 2022-11-19)
PROC: 0S9D3ZZ Drainage of Left Knee Joint, Percutaneous Approach (ICD-10-PCS; principal; 2022-11-21)
DX: I11.0 Hypertensive heart disease with heart failure (principal); I50.23 Acute on chronic systolic (congestive) heart failure; I48.20 Chronic atrial fibrillation, unspecified; N39.0 Urinary tract infection, site not specified; Z16.12 Extended spectrum beta lactamase (ESBL) resistance; I25.2 Old myocardial infarction; F41.9 Anxiety disorder, unspecified; M19.90 Unspecified osteoarthritis, unspecified site; G89.29 Other chronic pain; I25.10 Atherosclerotic heart disease of native coronary artery without angina pectoris; Z95.5 Presence of coronary angioplasty implant and graft; Z99.3 Dependence on wheelchair; Z79.01 Long term (current) use of anticoagulants; B96.20 Unspecified Escherichia coli [E. coli] as the cause of diseases classified elsewhere; M10.062 Idiopathic gout, left knee; E78.5 Hyperlipidemia, unspecified; N31.9 Neuromuscular dysfunction of bladder, unspecified; E66.01 Morbid (severe) obesity due to excess calories; Z68.39 Body mass index [BMI] 39.0-39.9, adult; Z87.891 Personal history of nicotine dependence; Z88.1 Allergy status to other antibiotic agents; Z88.8 Allergy status to other drugs, medicaments and biological substances; Z66 Do not resuscitate; Z20.822 Contact with and (suspected) exposure to COVID-19; Z79.899 Other long term (current) drug therapy
CPT/HCPCS: 36415; 36569; 71045; 74018; 76937; 78452; 80048; 80053; 82550; 82553; 83735; 83880; 84100; 84484; 85025; 85610; 85730; 87070; 87071; 87075; 87086; 87186; 87205; 89051; 89060; 93005; 93017; 93458; 93926; 93971; 94799; 96361; 99152; 99285; A9502; C1887; G0378; J1644; J2001; J2185; J2250; J2270; J2405; J7030; J7050; Q9967

== ENCOUNTER 2024-04-09 01:33 | Emergency (ER) | payer MEDICARE, OTHER ==
[~2024-04-09] VITALS: Ht 322.6 cm; Wt 113.4 kg
[2024-04-09 02:00] VITALS: RESP 19; TEMP 98
[2024-04-09 04:30] VITALS: PULSE 72
[2024-04-09 05:52] VITALS: BP 114/98; O2SAT 99
== END 2024-04-09 05:45 ==
LOC: ER 01:41
DX: S00.83XA Contusion of other part of head, initial encounter (principal); M54.2 Cervicalgia; M25.512 Pain in left shoulder; W06.XXXA Fall from bed, initial encounter; Y93.84 Activity, sleeping; Y92.89 Other specified places as the place of occurrence of the external cause; I10 Essential (primary) hypertension; E78.5 Hyperlipidemia, unspecified; I48.91 Unspecified atrial fibrillation; I25.10 Atherosclerotic heart disease of native coronary artery without angina pectoris; M54.9 Dorsalgia, unspecified; G89.29 Other chronic pain; I25.2 Old myocardial infarction; Z85.46 Personal history of malignant neoplasm of prostate
CPT/HCPCS: 70450; 72125; 99283

== ENCOUNTER 2024-08-04 14:32 | Inpatient (IN) | payer MEDICARE, OTHER ==
[~2024-08-04] VITALS: Ht 322.6 cm; Wt 113.4 kg
[2024-08-04] MEDS ORDERED: Morphine 4mg INJECTION 4 MG/ML INJ IV PRN (15:30)
[2024-08-04] MEDS ORDERED: ONDANSETRON HCL INJ 2MG/ML 2ML 2 MG/ML VIAL IV PRN (15:30)
[2024-08-04] MEDS ORDERED: IOPAMIDOL 370 MG/ML 100 ML INFUS..BTL INJ ONE (16:18)
[2024-08-04 16:23] VITALS: PULSE 59; RESP 16; TEMP 98.6; O2SAT 100
== END 2024-08-04 16:40 | disposition home or self-care (01) | DRG 700 ==
LOC: ER 14:50 → ERHOLD 16:17
PROVIDERS: ADMIT Internal Medicine; ATTEND Internal Medicine
PROC: 0T9B30Z Drainage of Bladder with Drainage Device, Percutaneous Approach (ICD-10-PCS; principal; 2024-08-04)
DX: T83.028A Displacement of other urinary catheter, initial encounter (principal); I48.91 Unspecified atrial fibrillation; I25.10 Atherosclerotic heart disease of native coronary artery without angina pectoris; E78.5 Hyperlipidemia, unspecified; M54.9 Dorsalgia, unspecified; Z79.01 Long term (current) use of anticoagulants; I25.2 Old myocardial infarction; Z93.6 Other artificial openings of urinary tract status; Z85.46 Personal history of malignant neoplasm of prostate; Z88.1 Allergy status to other antibiotic agents; Z88.8 Allergy status to other drugs, medicaments and biological substances
CPT/HCPCS: 51705; 74470; 99283; Q9967

== ENCOUNTER 2024-08-07 17:33 | Emergency (ER) | payer MEDICARE, OTHER ==
[~2024-08-07] VITALS: Ht 167.6 cm; Wt 113.4 kg
[2024-08-07 20:39] VITALS: PULSE 78; RESP 18; TEMP 98.6; O2SAT 99
== END 2024-08-07 21:11 | disposition home or self-care (01) ==
LOC: ER 18:02
DX: Z46.6 Encounter for fitting and adjustment of urinary device (principal); I10 Essential (primary) hypertension; E78.5 Hyperlipidemia, unspecified; G47.33 Obstructive sleep apnea (adult) (pediatric); M54.9 Dorsalgia, unspecified; G89.29 Other chronic pain; Z85.46 Personal history of malignant neoplasm of prostate
CPT/HCPCS: 99283

== ENCOUNTER → 2024-08-18 | Outpatient (REF) | payer MEDICARE, OTHER | LOC: RAD 15:34 | PROVIDERS: ATTEND Urology | DX: N20.0 Calculus of kidney (principal) | CPT/HCPCS: 74018 ==

== ENCOUNTER → 2024-12-01 | Outpatient (REF) | payer MEDICARE, OTHER | LOC: CT 09:43 | PROVIDERS: ATTEND Urology | DX: N20.0 Calculus of kidney (principal) | CPT/HCPCS: 74176 ==

== ENCOUNTER 2025-02-06 21:02 | Emergency (ER) | payer MEDICARE, OTHER ==
[~2025-02-06] VITALS: Ht 180.3 cm; Wt 111.1 kg
[~2025-02-06 21:02] MED LIST changes: -DEXAMETHASONE SOD PHOS INJ 4 MG/ML SDV ONE; -EPHEDRINE SULFATE INJ 50 MG/ML VIAL ONE; -FENTANYL CITRATE/PF 100MCG/2 ML INJ ONE; -GLYCOPYRROLATE INJ 0.2 MG/ML VIAL ONE; -LIDOCAINE HCL 2% LOCAL INJ 5 ML SDV VIAL INJ ONE; -MACROBID 100 M100 MG PO; -ONDANSETRON HCL INJ 2MG/ML 2ML 2 MG/ML VIAL ONE; -PROPOFOL IV EMULSION 0 ML IV ONE; -PROPOFOL IV EMULSION 10 MG/ML 20 ML VIAL ONE; -SEVOFLURANE INHAL SOLN 250 ML PEN BTL ONE; -SODIUM CHLORIDE 0.9% 100 ML ONE
[2025-02-06] MEDS: SODIUM CHLORIDE 0.9% 1000ML 1,000 ML IV ONE (21:53)
[2025-02-07 00:45] VITALS: PULSE 89; RESP 18; TEMP 98.9; O2SAT 98
== END 2025-02-07 00:45 | disposition home or self-care (01) ==
LOC: ER 21:06
DX: T83.090A Other mechanical complication of cystostomy catheter, initial encounter (principal); R10.30 Lower abdominal pain, unspecified; R53.1 Weakness; I10 Essential (primary) hypertension; I50.9 Heart failure, unspecified; I48.91 Unspecified atrial fibrillation; I25.10 Atherosclerotic heart disease of native coronary artery without angina pectoris; E78.5 Hyperlipidemia, unspecified; G47.33 Obstructive sleep apnea (adult) (pediatric); M54.9 Dorsalgia, unspecified; G89.29 Other chronic pain; Z85.46 Personal history of malignant neoplasm of prostate
CPT/HCPCS: 99284; J7030

== ENCOUNTER → 2025-02-06 | Day surgery (SDC) | payer MEDICARE, OTHER ==
[~2025-02-06] MED LIST changes: +ALLOPURINOL100 MG PO; +ASPIRIN EC81 MG PO; +BENADRYL ITCH28.3 GM TOP; +BUMETANIDE1 MG PO; +CLOPIDOGREL75 MG PO; +COREG3.125 MG PO; +DEXAMETHASONE SOD PHOS INJ 4 MG/ML SDV ONE; +EPHEDRINE SULFATE INJ 50 MG/ML VIAL ONE; +FAMOTIDINE20 MG PO; +FENTANYL CITRATE/PF 100MCG/2 ML INJ ONE; +FEROSUL325 MG PO; +GLYCOPYRROLATE INJ 0.2 MG/ML VIAL ONE; +JARDIANCE10 MG PO; +KETOCONAZOLE15 GM TOP; +LIDOCAINE HCL 2% LOCAL INJ 5 ML SDV VIAL INJ ONE; +LOPERAMIDE2 MG PO; +MACROBID 100 M100 MG PO; +MELATONIN10 M1 PO; +MILK OF MA2400 MG/10 PO; +NITROGLYCERIN0.4 MG SL; +ONDANSETRON HCL INJ 2MG/ML 2ML 2 MG/ML VIAL ONE; +ONDANSETRON ODT8 MG PO; +PROPOFOL IV EMULSION 0 ML IV ONE; +PROPOFOL IV EMULSION 10 MG/ML 20 ML VIAL ONE; +SEVOFLURANE INHAL SOLN 250 ML PEN BTL ONE; +SODIUM CHLORIDE 0.9% 100 ML ONE; +TIZANIDINE HCL4 MG PO; +ZESTRIL2.5 MG PO
[2025-02-06 09:10] LABS: BASOPHILS % 0.2 % (0.0-1.0); EOSINOPHILS # (AUTO) 0.2 (0.0-0.4); EOSINOPHILS % 2.1 % (0.0-6.0); HEMATOCRIT 42.8 % (38.2-49.6); HEMOGLOBIN 12.6 g/dL (14.0-18.0); LYMPHOCYTES # (AUTO) 1.3 (1.0-3.2); LYMPHOCYTES % 16.4 % (18.0-39.1); MEAN CORPUSCULAR HGB CONC 29.4 g/dL (31-35); MEAN CORPUSCULAR VOLUME 84.8 fL (81-99); MONOCYTES # (AUTO) 0.5 (0.2-0.8); MONOCYTES % 6.5 % (4.4-11.3); NEUTROPHILS % 74.7 % (38.7-80.0); PLATELET COUNT 148 x10e3/uL (140-360); RED BLOOD COUNT 5.05 x10e6/uL (4.3-5.7); RED CELL DISTRIBUTION WIDTH 24.1 % (11.7-14.4); WHITE BLOOD COUNT 8.05 x10e3/uL (4.8-10.8)
[2025-02-06 09:39] LABS: ALBUMIN 3.8 g/dL (3.5-5.0); ALBUMIN/GLOBULIN RATIO 1.2 (0.8-2.0); ANION GAP 15.1 mmol/L (8-16); BILIRUBIN,TOTAL 0.6 mg/dL (0.2-1.2); CALCIUM 9.9 mg/dL (8.4-10.2); CREATININE, SERUM 0.76 mg/dL (0.72-1.25); POTASSIUM 4.1 mmol/L (3.5-5.1)
[2025-02-06] MEDS: SODIUM CHLORIDE 0.9% 1000ML 1,000 ML ONE (10:16)
[2025-02-06] MEDS: GENTAMICIN 80MG/NS 100 ML 200 ML IV ONE (10:16)
[2025-02-06 12:43] VITALS: TEMP 97.7
[2025-02-06] MEDS: PIPERACILLIN/TAZOBACTAM 3.375 GM VIAL ONE (13:05)
[2025-02-06 14:05] VITALS: BP 117/68; PULSE 70; RESP 16; O2SAT 98
== END | disposition home or self-care (01) ==
LOC: OR 08:32
PROVIDERS: ATTEND Urology
DX: N20.0 Calculus of kidney (principal); N39.0 Urinary tract infection, site not specified; Z43.5 Encounter for attention to cystostomy; N32.81 Overactive bladder; R33.9 Retention of urine, unspecified; N32.89 Other specified disorders of bladder; G89.29 Other chronic pain; I10 Essential (primary) hypertension; E78.2 Mixed hyperlipidemia; I25.2 Old myocardial infarction; I48.91 Unspecified atrial fibrillation; Z79.01 Long term (current) use of anticoagulants; K21.9 Gastro-esophageal reflux disease without esophagitis; G62.9 Polyneuropathy, unspecified; J44.9 Chronic obstructive pulmonary disease, unspecified; I25.10 Atherosclerotic heart disease of native coronary artery without angina pectoris; I73.9 Peripheral vascular disease, unspecified; E66.01 Morbid (severe) obesity due to excess calories; Z68.41 Body mass index [BMI] 40.0-44.9, adult; Z85.46 Personal history of malignant neoplasm of prostate; Z90.79 Acquired absence of other genital organ(s); Z79.899 Other long term (current) drug therapy
CPT/HCPCS: 36415; 50590; 51705; 71046; 74018; 80053; 84550; 85025; 87086; 87186; C1758; J1100; J1580; J2003; J2405; J2543; J2704; J3010; J7030; J7050

== ENCOUNTER 2025-02-27 12:07 | Emergency (ER) | payer MEDICARE, OTHER ==
[~2025-02-27] VITALS: Ht 180.3 cm; Wt 111.1 kg
[2025-02-27 12:20] VITALS: PULSE 59; RESP 12; TEMP 98
[2025-02-27 14:12] LABS: BASOPHILS % 0.4 % (0.0-1.0); EOSINOPHILS % 2.7 % (0.0-6.0); LYMPHOCYTES % 15.2 % (18.0-39.1); MONOCYTES % 8.2 % (4.4-11.3); NEUTROPHILS % 73.3 % (38.7-80.0); RED CELL DISTRIBUTION WIDTH 20.1 % (11.7-14.4)
[2025-02-27 14:15] LABS: LEUKOCYTE ESTERASE ,URINE MODERATE (NEGATIVE); PROTEIN,URINE DIPSTICK TRACE (NEGATIVE); URINE UROBILINOGEN 0.2 mg/dL (0.2 - 1)
[2025-02-27 14:17] LABS: EPITHELIAL CELLS,URINE RARE /LPF; WBC,URINE (MAN) 0-5 /HPF (0-5)
[2025-02-27 14:35] LABS: EST GLOMERULAR FILTRATION RATE 90.0 ML/MIN (>=60)
[2025-02-27] MEDS ORDERED: MACROBID 100 M100 MG PO (15:42)
[2025-02-27] MEDS: MEROPENEM 1 GM in SODIUM CHLORIDE 0.9% 100 ML IV ONE (16:31)
[2025-02-27 17:36] VITALS: BP 121/74; PULSE 74; RESP 18; TEMP 98.3; O2SAT 98
== END 2025-02-27 17:10 | disposition home or self-care (01) ==
LOC: ER 12:19
DX: N39.0 Urinary tract infection, site not specified (principal); T83.098A Other mechanical complication of other urinary catheter, initial encounter; I10 Essential (primary) hypertension; I50.9 Heart failure, unspecified; I25.2 Old myocardial infarction; I48.11 Longstanding persistent atrial fibrillation; I25.10 Atherosclerotic heart disease of native coronary artery without angina pectoris; F41.9 Anxiety disorder, unspecified; F32.A Depression, unspecified; E78.5 Hyperlipidemia, unspecified; M54.9 Dorsalgia, unspecified; G89.29 Other chronic pain; Z85.46 Personal history of malignant neoplasm of prostate; Z96.649 Presence of unspecified artificial hip joint; F17.210 Nicotine dependence, cigarettes, uncomplicated; Z88.8 Allergy status to other drugs, medicaments and biological substances
CPT/HCPCS: 36415; 80048; 81001; 85025; 87086; 87186; 99284; J2185; J7050

== ENCOUNTER 2025-03-04 09:09 | Inpatient (IN) | payer MEDICARE, OTHER ==
[2025-03-04] VITALS (8 sets, daily range): BP systolic 120; BP diastolic 73–80; PULSE 52–64; RESP 15–18; TEMP 97.8–98.4; O2SAT 94–99
[~2025-03-04] VITALS: Ht 180.3 cm; Wt 108.9 kg
[~2025-03-04 09:09] MED LIST changes: +MACROBID 100 M100 MG PO
[2025-03-04 09:51] LABS: BASOPHILS % 0.4 % (0.0-1.0); EOSINOPHILS % 3.5 % (0.0-6.0); LYMPHOCYTES % 16.7 % (18.0-39.1); MONOCYTES % 6.1 % (4.4-11.3); NEUTROPHILS % 72.9 % (38.7-80.0); RED CELL DISTRIBUTION WIDTH 19.4 % (11.7-14.4)
[2025-03-04 10:16] LABS: LEUKOCYTE ESTERASE ,URINE LARGE (NEGATIVE); PROTEIN,URINE DIPSTICK NEGATIVE (NEGATIVE)
[2025-03-04 10:17] LABS: URINE UROBILINOGEN 0.2 mg/dL (0.2 - 1)
[2025-03-04 10:21] LABS: EST GLOMERULAR FILTRATION RATE 90.0 ML/MIN (>=60)
[2025-03-04 10:33] LABS: EPITHELIAL CELLS,URINE FEW /LPF
[2025-03-04 10:34] LABS: YEAST,URINE MODERATE
[2025-03-04] MEDS: ACETAMINOPHEN 325 MG TAB PO ONE (16:10)
[2025-03-04] MEDS: MEROPENEM 1 GM in SODIUM CHLORIDE 0.9% 100 ML IV SCH (19:02)
[2025-03-04] MEDS: ACETAMINOPHEN/CODEINE 300MG - 30MG TAB PO PRN (22:23)
[2025-03-05] VITALS (7 sets, daily range): BP systolic 120–140; BP diastolic 52–86; PULSE 61–78; RESP 18–20; TEMP 97.2–98.4; O2SAT 97–100
[2025-03-05 06:29] LABS: BASOPHILS % 0.3 % (0.0-1.0); EOSINOPHILS % 2.5 % (0.0-6.0); LYMPHOCYTES % 17.2 % (18.0-39.1); MONOCYTES % 6.3 % (4.4-11.3); NEUTROPHILS % 73.4 % (38.7-80.0); RED CELL DISTRIBUTION WIDTH 19.2 % (11.7-14.4)
[2025-03-05 07:07] LABS: EST GLOMERULAR FILTRATION RATE 94.0 ML/MIN (>=60)
[2025-03-05] MEDS: ASPIRIN 81 MG ENTERIC COATED PO SCH (08:48)
[2025-03-05] MEDS: LISINOPRIL 2.5 MG TAB PO SCH (08:48)
[2025-03-05] MEDS: GABAPENTIN 400 MG CAP PO SCH (08:49)
[2025-03-05] MEDS: FERROUS SULFATE 325 MG TAB PO SCH (08:49)
[2025-03-05] MEDS: CLOPIDOGREL BISULFATE 75 MG TAB PO SCH (08:49)
[2025-03-05] MEDS: SERTRALINE HCL 50 MG TAB PO SCH (08:49)
[2025-03-05] MEDS: CARVEDILOL 3.125 MG TAB PO SCH (08:49)
[2025-03-05] MEDS: OXYBUTYNIN CHLORIDE 5 MG TAB PO SCH (08:49)
[2025-03-05] MEDS: ALLOPURINOL 100 MG TAB PO SCH (08:49)
[2025-03-05] MEDS: BUMETANIDE 1 MG TAB PO SCH (08:49)
[2025-03-05] MEDS ORDERED: FUROSEMIDE 40 MG TAB PO SCH (09:00)
[2025-03-05] MEDS: TRAZODONE HCL 50 MG TAB PO PRN (20:51)
[2025-03-05] MEDS ORDERED: MELATONIN 5 MG TABLET PO SCH (21:00)
[2025-03-06] VITALS (8 sets, daily range): BP systolic 116–156; BP diastolic 56–104; PULSE 66–106; RESP 18–20; TEMP 98.1–98.4; O2SAT 95–100
[2025-03-06 06:10] LABS: BASOPHILS % 0.3 % (0.0-1.0); EOSINOPHILS % 1.8 % (0.0-6.0); LYMPHOCYTES % 14.9 % (18.0-39.1); MONOCYTES % 7.7 % (4.4-11.3); NEUTROPHILS % 74.9 % (38.7-80.0); RED CELL DISTRIBUTION WIDTH 18.8 % (11.7-14.4)
[2025-03-06 06:39] LABS: EST GLOMERULAR FILTRATION RATE 94.0 ML/MIN (>=60)
[2025-03-06] MEDS: ACETAMINOPHEN/CODEINE 300MG - 30MG TAB PO ONE (08:09)
[2025-03-06] MEDS: ACETAMINOPHEN/CODEINE 300MG - 30MG TAB PO PRN (13:47)
[2025-03-06] MEDS: POTASSIUM CHLORIDE 20 MEQ TAB CR PO ONE (13:47)
[2025-03-07 01:14] VITALS: BP 153/88; PULSE 77; RESP 20; TEMP 98.1; O2SAT 99
[2025-03-07 06:22] VITALS: BP 140/91; PULSE 74; RESP 18; TEMP 97.3; O2SAT 99
[2025-03-07 07:20] VITALS: BP 150/68; PULSE 62; RESP 20; TEMP 98; O2SAT 100
[2025-03-07 09:02] VITALS: BP 157/77; PULSE 62; RESP 20; TEMP 98.1; O2SAT 100
[2025-03-07] MEDS: FAMOTIDINE 20 MG TAB PO SCH (09:16)
[2025-03-07] MEDS: CALCIUM CARBONATE 500 MG CHEWABLE TABS PO ONE (12:24)
[2025-03-07 12:37] VITALS: BP 137/78; PULSE 83; RESP 18; TEMP 98.6; O2SAT 100
[2025-03-07 16:13] VITALS: BP 134/94; PULSE 73; RESP 20; TEMP 98; O2SAT 100
== END 2025-03-07 18:00 | DRG 699 ==
LOC: ER 09:14 → ERHOLD 09:20 → MED/SURG2 16:37
PROVIDERS: ADMIT Internal Medicine; ATTEND Internal Medicine
PROC: 02HV33Z Insertion of Infusion Device into Superior Vena Cava, Percutaneous Approach (ICD-10-PCS; principal; 2025-03-04)
DX: T83.511A Infection and inflammatory reaction due to indwelling urethral catheter, initial encounter (principal); B37.49 Other urogenital candidiasis; I48.20 Chronic atrial fibrillation, unspecified; Z16.12 Extended spectrum beta lactamase (ESBL) resistance; Z16.24 Resistance to multiple antibiotics; B96.5 Pseudomonas (aeruginosa) (mallei) (pseudomallei) as the cause of diseases classified elsewhere; N40.1 Benign prostatic hyperplasia with lower urinary tract symptoms; R33.8 Other retention of urine; I10 Essential (primary) hypertension; I25.10 Atherosclerotic heart disease of native coronary artery without angina pectoris; M48.00 Spinal stenosis, site unspecified; E87.6 Hypokalemia; E78.5 Hyperlipidemia, unspecified; N31.9 Neuromuscular dysfunction of bladder, unspecified; G47.33 Obstructive sleep apnea (adult) (pediatric); F41.9 Anxiety disorder, unspecified; F32.A Depression, unspecified; M54.9 Dorsalgia, unspecified; E66.9 Obesity, unspecified; Z68.33 Body mass index [BMI] 33.0-33.9, adult; Y84.6 Urinary catheterization as the cause of abnormal reaction of the patient, or of later complication, without mention of misadventure at the time of the procedure; Z79.84 Long term (current) use of oral hypoglycemic drugs; Z79.02 Long term (current) use of antithrombotics/antiplatelets; Z79.82 Long term (current) use of aspirin; Z95.5 Presence of coronary angioplasty implant and graft; Z95.9 Presence of cardiac and vascular implant and graft, unspecified; I25.2 Old myocardial infarction; Z96.0 Presence of urogenital implants; Z87.440 Personal history of urinary (tract) infections; Z85.46 Personal history of malignant neoplasm of prostate; Z88.1 Allergy status to other antibiotic agents; Z88.8 Allergy status to other drugs, medicaments and biological substances
CPT/HCPCS: 36415; 36569; 71045; 80048; 80053; 81001; 85025; 87086; 87186; 94799; 99283; J2185; J2543; J7050